=== PATIENT | male | born 1990 | race Caucasian/White ===

== ENCOUNTER 2023-01-13 00:29 | Emergency (ER) | payer OTHER, SELFPAY ==
[2023-01-13 00:34] VITALS: BP 152/106; PULSE 76; RESP 16; TEMP 36.7; O2SAT 100; BMI 31.9
--- NOTE | 2023-01-13 01:04 | PC.NURSE ---
patient c/o migraine since yesterday. states yesterday he believes he had 24hour stomach bug, light fever of 101 and an episode of vomiting. fever and upset stomach improved by morning. denies and flu like symptoms at this time. shortly after his headache started. states he doesn't think he has a hx of migraines but states when he gets a headache its always bad. patient is tearful. states hes been taking extra strenghth excedrin for 24hours without any relief. patient has light sensitivity. and states headache is a strong constant ache with sharp intermittent pains behind left eye.
--- NOTE | 2023-01-13 01:21 | ED_ITS ---
HPI - General Adult General Chief complaint: Headache Stated complaint: HEADACHE, VOMITING, FEVER Time Seen by Provider: 01/13/23 01:16 Source: patient Mode of arrival: walk-in History of Present Illness HPI narrative: patient presents complaining of migraine headache behind his left eye. Similar headaches 3-4 times a year. States headache started yesterday. states he had a fever yesterday also but this has resolved and not returned. S madyson he has an new born at home with a fever. He has some nausea. Emesis once yesterday. No cough or abdominal pain. Onset (ago): day(s) Related Data Allergies Allergy/AdvReac Type Severity Reaction Status Date / Time No Known Drug Allergies Allergy Verified 01/13/23 00:56 Review of Systems ROS Status of ROS 10 or more systems reviewed and unremarkable except as noted in history and below Exam Constitutional Vital Signs, click to edit/add: Last Vital Signs Temp 98.1 F 01/13/23 00:34 Pulse 76 01/13/23 00:34 Resp 16 01/13/23 00:34 BP 152/106 H 01/13/23 00:34 Pulse Ox 100 01/13/23 00:34 O2 Del Method Room Air 01/13/23 00:34 Common normals: oriented x3, healthy appearing and alert General appearance: in distress (appears uncomfortable) HENMT Common normals: normocephalic and head/scalp atraumatic Eye Common normals: PERRL, EOMs intact bilaterally and conjunctivae normal Respiratory Common normals: normal respiratory effort, no retractions, no use of accessory muscles and clear to auscultation bilaterally Cardio Common normals: regular rate, regular rhythm, S1 normal heart sound and S2 normal heart sound GI Common normals: Normal to inspection, nondistended, normoactive bowel sounds present, soft to palpation and non-tender Extremity Common normals: normal to inspection and full ROM Neuro Common normals: oriented x3, CN's II-XII intact bilaterally, moves all extremities, no focal motor deficits and no sensory deficits noted Psych Appearance: grossly normal Course Vital Signs Vital signs: Vital Signs Temperature 98.1 F 01/13/23 00:34 Pulse Rate 76 01/13/23 00:34 Respiratory Rate 16 01/13/23 00:34 Blood Pressure 152/106 H 01/13/23 00:34 Pulse Oximetry 100 01/13/23 00:34 Oxygen Delivery Method Room Air 01/13/23 00:34 Temperature 98.1 F 01/13/23 00:34 Pulse Rate 76 01/13/23 00:34 Respiratory Rate 16 01/13/23 00:34 Blood Pressure 152/106 H 01/13/23 00:34 Pulse Oximetry 100 01/13/23 00:34 Oxygen Delivery Method Room Air 01/13/23 00:34 Medical Decision Making MDM Narrative Medical decision making narrative: patient presents with a headache. typical migraine headache for him. Did have fever yesterday but no recurrence. WBC normal and he is afebrile. Patient medicated for migraine. patient feeling better after treatment and is requesting discharge Lab Data Labs: Lab Results 01/13/23 Range/Units 00:52 WBC 5.6 (4.0-11.0) 10^3/uL RBC 5.17 (4.70-6.10) 10^6/uL Hgb 15.1 (14.0-18.0) g/dL Hct 44.1 (42.0-54.0) % MCV 85.3 (80.0-94.0) fL MCH 29.2 (25.9-34.0) pg MCHC 34.2 (29.9-35.2) g/dL RDW 11.8 (11.0-15.0) % Plt Count 257 (150-450) 10^3/uL MPV 10.1 (9.5-13.5) fL Neut % (Auto) 44.2 (43.0-75.0) % Lymph % (Auto) 42.1 (20.5-60.0) % Nicholas % (Auto) 10.0 (1.7-12.0) % Eos % (Auto) 3.0 (0.9-7.0) % Baso % (Auto) 0.7 (0.2-2.0) % Neut # (Auto) 2.5 (1.4-6.5) 10^3/uL Lymph # (Auto) 2.4 (1.2-3.8) 10^3/uL Nicholas # (Auto) 0.6 (0.3-0.8) 10^3/uL Eos # (Auto) 0.2 (0.0-0.7) 10^3/uL Baso # (Auto) 0.0 (0.0-0.1) 10^3/uL Abs Immat Gran (auto) 0.00 (0.00-0.03) 10^3/uL Imm/Tot Granulo (auto) 0.0 (0.0-0.5) % Sodium 138 (136-145) mmol/L Potassium 3.7 (3.5-5.1) mmol/L Chloride 101 (98-107) mmol/L Carbon Dioxide 25.6 (21.0-32.0) mmol/L Anion Gap 15.1 BUN 10.0 (7.0-18.0) mg/dL Creatinine 0.86 (0.70-1.30) mg/dL Est GFR ( Amer) >60 (>=60) Est GFR (Non-Af Amer) >60 (>=60) BUN/Creatinine Ratio 11.6 Glucose 92 (74-106) mg/dL Lactate 0.9 (0.4-2.0) mmol/L Calcium 9.2 (8.5-10.1) mg/dL Discharge Plan Discharge Chief Complaint: Headache Clinical Impression: Migraine Patient Disposition: Home, Self-Care Condition: Good Mode of Transportation: Private Vehicle Instructions: Migraine Headache (ED) Stand Alone Forms: Portal Instructions Referrals: SILVIA HERNANDEZ [Primary Care Provider] - 1 week Discharge Date/Time: 01/13/23 03:00
[2023-01-13 01:40] LABS: Basophils Percent Auto 0.7 % (0.2-2.0); Eosinophils Absolute Auto 0.2 10^3/uL (0.0-0.7); Hematocrit 44.1 % (42.0-54.0); Hemoglobin 15.1 g/dL (14.0-18.0); Lymphocytes Absolute Auto 2.4 10^3/uL (1.2-3.8); Lymphocytes Percent Auto 42.1 % (20.5-60.0); Mean Corpuscular HGB Conc 34.2 g/dL (29.9-35.2); Mean Corpuscular Hemoglobin 29.2 pg (25.9-34.0); Mean Corpuscular Volume 85.3 fL (80.0-94.0); Mean Platelet Volume 10.1 fL (9.5-13.5); Monocytes Absolute Auto 0.6 10^3/uL (0.3-0.8); Neutrophils Absolute Auto 2.5 10^3/uL (1.4-6.5); Neutrophils Percent Auto 44.2 % (43.0-75.0); Platelet Count 257 10^3/uL (150-450); Red Blood Count 5.17 10^6/uL (4.70-6.10); Red Cell Distribution Width 11.8 % (11.0-15.0); White Blood Count 5.6 10^3/uL (4.0-11.0)
[2023-01-13] MEDS: METHYLPREDNISOLONE SOD SUCC PF 125 MG/2 ML VIAL IVP (01:41)
[2023-01-13] MEDS: METOCLOPRAMIDE HCL 10 MG/2 ML VIAL IVP (01:41)
[2023-01-13] MEDS: MAGNESIUM SULFATE IN WATER 2 GM/50 ML PREMIX IV (01:42)
[2023-01-13 01:46] LABS: Anion Gap 15.1; BUN Creatinine Ratio 11.6; Calcium 9.2 mg/dL (8.5-10.1); Carbon Dioxide 25.6 mmol/L (21.0-32.0); Chloride 101 mmol/L (98-107); Estimated GFR (African America >60 (>=60); Estimated GFR (Non-African Ame >60 (>=60); Glucose 92 mg/dL (74-106); Potassium 3.7 mmol/L (3.5-5.1); Sodium 138 mmol/L (136-145)
[2023-01-13 01:55] LABS: Lactate/Lactic Acid 0.9 mmol/L (0.4-2.0)
== END 2023-01-13 03:00 | disposition home or self-care (01) ==
LOC: ER 01:09
PROVIDERS: Emergency Provider Internal Medicine; PCP Family Medicine
DX: G43.909 Migraine, unspecified, not intractable, without status migrainosus (principal)
CPT/HCPCS: 36415; 80048; 83605; 85025; 96365; 96375; 99284; J2930

== ENCOUNTER 2024-07-11 19:42 | Emergency (ER) | payer OTHER, SELFPAY ==
--- OUTSIDE RECORDS SUMMARY | 2024-07-11 19:48 | XMS_ITS | CCD ---
Author Organization [facility] Care Team Providers Care Flatbed Owner Operator Name Role Phone RICHARD HERNANDEZ Referring Unavailable RICHARD HERNANDEZ Primary Care Unavailable Richard Hernandez Primary Care Provider Reena Galloway Unavailable MARK ., DR LOBO Parikh Primary Care Unavailable BRENT HILTON Admitting Unavailable BRENT HILTON Attending Unavailable BRENT HILTON Consulting Unavailable MARK ., DR LOBO Parikh Admitting Unavailable FLORES ., DR LOBO Parikh Attending Unavailable FLORES ., DR LOBO Parikh Primary Care Unavailable MARK ., DR LOBO Parikh Consulting Unavailable MD Richard Hernandez Primary Care Provider DO [facility] [phone] Rodger [place] Attending Unavailable Horace Lam Unavailable Glenn Islas Admitting Unavailable Glenn Islas Attending Unavailable Richard Hernandez Primary Care Unavailable Richard Hernandez Primary Care Unavailable [facility] Admitting Unavailable [facility] Attending Unavailable Richard Hernandez MD Primary Care Provider [phone] RICHARD HERNANDEZ Attending Unavailable Medications Current Medications Medication Drug Class(es) Dates Sig (Normalized) Sig (Original) cephalexin 500 mg oral capsule (2 sources) Cephalosporin Antibacterial Start: 09-07-2022 take 500 mg by mouth twice daily Cephalexin Active 500 MG PO Twice daily 10 September 07, 2022 12:00am DULoxetine 20 mg delayed release oral capsule (9 sources) Serotonin and Norepinephrine Reuptake Inhibitor Start: 10-26-2022 End: 04-24-2023 take 1 capsule by mouth in the morning DULoxetine (Cymbalta) [address] capsule Indications: Anxiety Take 1 capsule (20 mg) by mouth in the morning. Do not crush or chew.. 90 capsule 1 10/26/2022 04/24/2023 Active Start: 09-06-2022 take 1 capsule by mo [facility] once daily Duloxetine (Cymbalta) 20 mg capsule,delayed release(DR/EC) Active 20 MG PO Daily September 06, 2022 12:00am Cymbalta 25mg Ac tive Fiber (1 source) Fiber Active hydrOXYzine hydrochloride 25 mg oral tablet (5 sources) Antihistamine Start: 09-06-2022 take 25 mg by mouth once daily Hydroxyzine Hcl Active 25 MG PO Daily September 06, 2022 12:00am Start: 08-31-2022 take 1 tablet by [facility] four times daily as needed for anxiety hydrOXYzine HCl (Atarax) 25 MG tablet Indications: Anxiety Take 1 tablet (25 mg) by mouth 4 (four) times a day as needed for anxiety. 40 tablet 0 08/31/2022 Active 12 hr orphenadrine citrate 100 mg extended release oral tablet (1 source) Muscle Relaxant Start: 05-13-2022 take 1 tablet by mouth twice daily as needed, then take 1 tablet by mouth every twelve hours as needed orphenadrine (Norflex) 100 MG 12 hr tablet Take 100 mg by mouth 2 (two) times a day as needed (migraines). 0 05/13/2022 Active oxyCODONE hydrochloride 5 mg oral tablet (2 sources) Opioid Agonist Start: 09-07-2022 take 5 mg by mouth every eight hours Oxycodone Active 5 MG PO Q8H 12 September 07, 2022 Start: 09-07-2022 take 5 mg by mouth e very eight hours Oxycodone Active 5 MG PO Q8H 12 September 07, 2022 polyethylene glycol 3350 38168 mg powder for oral solution (3 sources) Osmotic Laxative take 17 g by mouth in the morning, then take 17 g by mouth in the evening, then take 17 g by mouth at bedtime polyethylene glycol, PEG, 3350 (Glycolax) 17 GM/SCOOP powder Take 17 g by mouth in the morning and 17 g in the evening and 17 g before bedtime. 0 Active MiraLax 17 GM/SC OOP 1 scoop mixed with 8 ounces of fluid Orally twice a day Active polyethylene glycol 3350 889911 mg / potassium chloride 2970 mg / sodium bicarbonate 6740 mg / sodium chloride 5860 mg / sodium sulfate 81193 mg powder for oral solution (4 sources) Osmotic Laxative Start: 10-26-2022 PEG-3350/Electrolytes 236 GM as directed Orally once a day for 1 Oct, Active Probiotic (1 source) Probiotic Active Senna Leaves (1 source) Senna Active sulfamethoxazole 800 mg / trimethoprim 160 mg oral tablet (2 sources) Dihydrofolate Reductase Inhibitor Antibacterial, Sulfonamide Antimicrobial Start: 09-06-2022 take 1 tablet by mouth twice daily Sulfamethoxazole-Trimeth oprim Active 800 TAB PO Twice daily September 06, 2022 12:00am tamsulosin hydrochloride 0.4 mg oral capsule (6 sources) alpha-Adrenergic Susan take 1 capsule by mouth once daily at bedtime tamsulosin (Flomax) 0.4 MG 24 hr capsule TAKE 1 CAPSULE BY MOUTH EVERY DAY IN THE MORNING AND AT BEDTIME 0 Active Flomax bid Activ e Trulance 3 MG (1 source) Start: 01-24-2023 take 1 tablet by armando th once daily Trulance 3 MG 1 tablet Orally Once a day for 30 days Jan, Active Completed/Discontinued Medications Medication Drug Class(es) Dates Sig (Normalized) Sig (Original) Ketorolac (6 sources) Nonsteroidal Anti-inflammatory Drug, Cyclooxygenase Inhibitor Start: 11-09-2015 Toradol per 15 mg Nov, 60 mg polymyxin b 65070 unt/ml / trimethoprim 1 mg/ml ophthalmic solution (5 sources) Dihydrofolate Reductase Inhibitor Antibacterial, Polymyxin-class Antibacterial Start: 03-13-2021 take 1 drop(s) into the eye(s) four times daily Polymyxin B-Trimethoprim 04013-3.1 UNIT/ML 1 drop into affected eye Ophthalmic Four times a day for 5 day(s) Mar, Not-Taking Problems Active Problems Problem Classification Problem Date Documented Da te Episodic/Chronic Anxiety disorders (6 sources) Generalized anxiety disorder; Translations: [Generalized anxiety disorder] Onset: 02-16-2009 Resolved: 10-26-2022 10-26-2022 Chronic Fever of unknown origin (4 sources) Fever, unspecified; Translations: [FEVER UNSPECIFIED] Onset: 03-01-2022 Episodic Headache; including migraine (6 sources) Tension-type headache; Translations: [Headache, tension] Onset: 10-07-2012 Chronic Malaise and fatigue (1 source) Fatigue; Translations: [Chronic fatigue, unspecified] Onset: 08-30-2022 08-30-2022 Chronic Nausea and vomiting (1 source) Nausea; Translations: [NAUSEA] Onset: 03-03-2022 Episodic Other aftercare (1 source) Other extermination supervisor (current) drug therapy; Translations: [OTH [facility] CURRENT DRUG THERAPY] Onset: 05-16-2022 Episodic Other circulatory disease (1 source) Other specified symptoms and signs involving the circulatory and respiratory systems; Translations: [OTH SPEC SX SIGNS INVLV CIRC RS] Onset: 03-03-2022 Episodic Other ear and sense organ disorders (2 sources) Middle ear conductive hearing loss; Translations: [Conductive hearing loss, middle ear] Onset: 03-01-2012 Chronic Other gastrointestinal disorders (2 sources) Irritable bowel syndrome characterized by constipation; Translations: [Irritable bowel syndrome with constipation] Chronic Other gastrointestinal disorders (2 sources) Irritable bowel syndrome with constipation Chronic Other gastrointestinal disorders (1 source) Constipation, unspecified Episodic Other gastrointestinal disorders (2 sources) Change in bowel habit; Translations: [Change in bowel habit] Onset: 01-08-2023 Episodic Residual codes; unclassified (1 source) Pain, unspecified; Translations: [PAIN UNSPECIFIED] Onset: 03-03-2022 Episodic Past or Other Problems Problem Classification Problem Date Documented Da te Episodic/Chronic Allergic reactions (1 source) Allergy to food; Translations: [Allergy to other foods] Onset: 09-21-2020 08-30-2022 Episodic Genitourinary symptoms and ill-defined conditions (5 sources) Stewart hematuria; Translations: [Gross hematuria] Onset: 02-22-2009 09-07-2022 Episodic Immunizations and screening for infectious disease (1 source) Contact with and (suspected) exposure to other viral communicable diseases Onset: 03-13-2021 Resolved: 03-13-2021 Episodic Inflammation; infection of eye (except that caused by tuberculosis or sexually transmitteddisease) (1 source) Unspecified acute conjunctivitis, right eye Onset: 03-13-2021 Resolved: 03-13-2021 Episodic Other ear and sense organ disorders (2 sources) Impacted cerumen; Translations: [Excess wax in ear] Onset: 03-02-2012 Episodic Other gastrointestinal disorders (7 sources) Constipation; Translations: [Constipation, unspecified] Onset: 09-23-2020 Resolved: 04-11-2023 04-11-2023 Episodic Other nutritional; endocrine; and metabolic disorders (1 source) Obesity; Translations: [Obesity, unspecified] Onset: 10-02-2018 Resolved: 04-11-2023 04-11-2023 Chronic Other nutritional; endocrine; and metabolic disorders (1 source) Body mass index 25-29 - overweight; Translations: [Overweight] Onset: 08-30-2022 08-30-2022 Episodic Other nutritional; endocrine; and metabolic disorders (1 source) Overweight; Translations: [Overweight] Onset: 09-23-2020 Resolved: 04-11-2023 04-11-2023 Episodic Other skin disorders (2 sources) Disorder of skin; 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, other specified] Onset: 10-12-2009 Episodic Screening and history of mental health and substance abuse codes (2 sources) Personal history of nicotine dependence; Translations: [Ex-smoker] Onset: 09-23-2020 08-30-2022 Episodic Spondylosis; intervertebral disc disorders; other back problems (2 sources) Neck pain; Translations: [Neck Pain/Cervicalgia] Onset: 04-04-2011 Episodic Superficial injury; contusion (2 sources) Superficial injury of abdominal wall without infection; Translations: [Superficial injury of abdominal wall without infection] Onset: 10-12-2009 Episodic Results Test Name Value Interpretation Reference Range Facility Alanine aminotransferase [En zymatic activity/volume] in Serum or PlasmaOrdered By: Mt Reyes on 09-07-2022 ALT [Catalytic activity/Vol] 21 U/L 7-52 [facility] Albumin [Mass/volume] in Ser um or Plasma by Bromocresol green (BCG) dye binding methoOrdered By: Mt Reyes on 09-07-2022 Albumin BCG dye [Mass/Vol] 4.5 g/dL 3.5-5.7 [facility] Alkaline phosphatase [Enzyma tic activity/volume] in Serum or PlasmaOrdered By: Mt Reyes on 09-07-2022 ALP [Catalytic activity/Vol] 59 U/L 34-104 [facility] Aspartate aminotransferase [ Enzymatic activity/volume] in Serum or PlasmaOrdered By: Mt Reyes on 09-07-2022 AST [Catalytic activity/Vol] 18 U/L 13-39 [facility] Automated erythrocytes count in urine sediment (number/area)Ordered By: Mt Reyes on 09-07-2022 RBC Auto (Urine sed) [#/Area] 10-19 [HPF] 0-4 [facility] Automated leukocytes count i n urine sediment (number/area)Ordered By: Mt Reyes on 09-07-2022 WBC Auto (Urine sed) [#/Area] None seen [HPF] 0-4 [facility] Basic Metabolic Panelon Anion gap [Moles/Vol] 9.8 mmol/L Normal 6.0-15.0 [facility] Comment on above: Performed By: #### C BC, HEPATIC, LIPASE, BMP #### [facility] [address] [place] [address] [place] Calcium [Mass/Vol] 8.7 mg/dL Normal 8.6-10.3 [facility] Comment on above: Performed By: #### C BC, HEPATIC, LIPASE, BMP #### [facility] [address] [place] [id number] [place] Chloride [Moles/Vol] 106 mmol/L Normal 98-107 [facility] Comment on above: Performed By: #### C BC, HEPATIC, LIPASE, BMP #### [facility] [address] [place] [id number] [place] CO2 [Moles/Vol] 24.8 mmol/L Normal 21.0-31.0 [facility] Comment on above: Performed By: #### C BC, HEPATIC, LIPASE, BMP #### [facility] [address] [place] [id number] [place] Creatinine [Mass/Vol] 0.90 mg/dL Normal 0.70-1.30 [facility] Comment on above: Performed By: #### C BC, HEPATIC, LIPASE, BMP #### [facility] [address] [place] [phone] [place] Creatinine Clr Calc Pharmacy 141.04 Normal [facility] Comment on above: Performed By: #### C BC, HEPATIC, LIPASE, BMP #### [facility] [address] [place] [address] [place] GFR/1.73 sq M.predicted MDRD (S/P/Bld) [Vol rate/Area] mL/min/{1.73_m2} Normal [facility] Comment on above: Performed By: #### C BC, HEPATIC, LIPASE, BMP #### [facility] [address] Glucose [Mass/Vol] 74 mg/dL Normal 70-100 [facility] Comment on above: Result Comment: [facility] Glucose Reference Range is dependent on time and content of last meal. Glucose of more than 200 mg/dL in a nonstressed, ambulatory subject supports the diagnosis of Diabetes Mellitus. ADA recommended reference range Performed By: #### C BC, HEPATIC, LIPASE, BMP #### [facility] [address] Potassium [Moles/Vol] 3.6 mmol/L Normal 3.5-5.1 [facility] Comment on above: Performed By: #### C BC, HEPATIC, LIPASE, BMP #### [facility] [address] [place] [address] [place] Sodium [Moles/Vol] 137 mmol/L Normal 136-145 [facility] Comment on above: Performed By: #### C BC, HEPATIC, LIPASE, BMP #### [facility] [address] [place] [address] [place] Urea nitrogen [Mass/Vol] 14 mg/dL Normal 7-25 [facility] Comment on above: Performed By: #### C BC, HEPATIC, LIPASE, BMP #### [facility] [address] [place] [address] [place] Basophils Auto (Bld) [#/Vol] Ordered By: Mt Reyes on 09-07-2022 Basophils (Bld) [#/Vol] 0.1 10*3/uL 0.0-0.2 [facility] Basophils/100 WBC Auto (Bld) Ordered By: Mt Reyes on 09-07-2022 Basophils/100 WBC (Bld) 1.2 % . [facility] Bilirubin Test strip Ql (U)O rdered By: Mt Reyes on 09-07-2022 Bilirubin Ql (U) Negative Negative [facility] Bilirubin.direct [Mass/volum e] in Serum or PlasmaOrdered By: Mt Reyes on 09-07-2022 Bilirubin.direct [Mass/Vol] 0.10 mg/dL 0.03-0.18 [facility] Bilirubin.total [Mass/volume ] in Serum or PlasmaOrdered By: Mt Reyes on 09-07-2022 Bilirubin [Mass/Vol] 0.4 mg/dL 0.3-1.0 [facility] CT abdomen pelvis wo conon 0 09-07-2022 CT abdomen pelvis wo con [facility] [place] [address] CT Scan Report Signed Patient: Kim Sawant MR#: [id number] : 1990 Acct:[id number] Age/Sex: 32 / M ADM Date: 09/06/22 Loc: ER Room: Type: [facility] ER Attending Dr: Copies to: Mt Reyes DO Ordering Provider: Mt Reyes DO Date of Service: 09/07/22 CT/CT abdomen pelvis wo con: f CT Abdomen and Pelvis withoutcontrast TECHNIQUE: Axial imaging with 2-D reconstruction. . The CT exam was performed using one or more the following dose reduction techniques: Automated exposure control, adjustment of the MA and/or Kv according to patient size, or use of the iterative reconstruction technique. COMPARISON: None History: Left flank pain for 5 days LIMITATIONS: None LOWER THORAX Unremarkable LIVER: Unremarkable GALLBLADDER: No gallbladder abnormality identified. BILE DUCTS: No dilatation SPLEEN: Unremarkable PANCREAS: Unremarkable ADRENAL GLANDS: Unremarkable KIDNEYS:Unremarkable AORTA: No abdominal aortic aneurysm identified. RETROPERITONEUM: No significant retroperitoneal abnormalities identified. MESENTERY:Unremarkable SMALL BOWEL: The small bowel loops are nondistended. APPENDIX: The appendix is normal. COLON: Dense colonic fecal retention without obstruction. URINARY BLADDER: Decompressed by catheter. REPRODUCTIVE SYSTEM: Reproductive structures are unremarkable. PNEUMOPERITONEUM: None PERITONEAL FLUID:None BONY STRUCTURES: Degenerative change. ABDOMINAL WALL: Unremarkable CT/CT abdomen pelvis wo con IMPRESSION: No nephrolithiasis or obstructive uropathy. Normal appendix. Dense retained stool. Impression dictated by: John Toledo M.D.09/07/2022 8:23 AM Dictation Location: [place] [address] Transcribed By: [facility] 09/07/22822 Dictated By: John Toledo DO 09/07/22821 Signed By: 09/07/22822 Normal [facility] Calcium [Mass/volume] in Ser um or PlasmaOrdered By: Mt Reyes on 09-07-2022 Calcium [Mass/Vol] 8.7 mg/dL 8.6-10.3 [facility] Carbon dioxide, total [Moles /volume] in Serum or PlasmaOrdered By: Mt Reyes on 09-07-2022 CO2 [Moles/Vol] 24.8 mmol/L 21.0-31.0 [facility] Chloride [Moles/volume] in S basil or PlasmaOrdered By: Mt Reyes on 09-07-2022 Chloride [Moles/Vol] 106 mmol/L 98-107 [facility] Color Auto (U)Ordered By: Damien Reyes on 09-07-2022 Color (U) Yellow Yellow [facility] Complete Blood Count Auto Di ffon 09-07-2022 Basophils (Bld) [#/Vol] 0.1 10*3/uL Normal 0.0-0.2 [facility] Comment on above: Result Comment: PERF ORMED BY: [place] [address] PATHOLOGIST CHIEF ENGINEER VITALY CULLEN M.D. Performed By: #### C BC, HEPATIC, LIPASE, BMP #### [facility] [address] Basophils/100 WBC (Bld) 1.2 % Normal . [facility] Comment on above: Performed By: #### C BC, HEPATIC, LIPASE, BMP #### [facility] [address] Eosinophils (Bld) [#/Vol] 0.2 10*3/uL Normal 0.0-0.45 [facility] Comment on above: Performed By: #### C BC, HEPATIC, LIPASE, BMP #### [facility] [address] Eosinophils/100 WBC (Bld) 3.2 % Normal . [facility] Comment on above: Performed By: #### C BC, HEPATIC, LIPASE, BMP #### [facility] [address] Erythrocyte distribution width (RBC) [Ratio] 12.8 % Normal 12.0-14.8 [facility] Comment on above: Performed By: #### C BC, HEPATIC, LIPASE, BMP #### [address] Hematocrit (Bld) [Volume fraction] 39.5 % Normal 38.8-50.0 [facility] Comment on above: Performed By: #### C BC, HEPATIC, LIPASE, BMP #### [address] Hemoglobin (Bld) [Mass/Vol] 13.6 g/dL Normal 13.0-17.0 [facility] Comment on above: Performed By: #### C BC, HEPATIC, LIPASE, BMP #### [address] Lymphocytes (Bld) [#/Vol] 2.0 10*3/uL Normal 1.00-4.8 [facility] Comment on above: Performed By: #### C BC, HEPATIC, LIPASE, BMP #### [address] Lymphocytes/100 WBC (Bld) 29.3 % Normal . [facility] Comment on above: Performed By: #### C BC, HEPATIC, LIPASE, BMP #### [address] MCH (RBC) [Entitic mass] 29.5 pg Normal 27.5-35.2 [facility] Comment on above: Performed By: #### C BC, HEPATIC, LIPASE, BMP #### [address] MCV (RBC) [Entitic vol] 85.7 fL Normal 83.5-101 [facility] Comment on above: Performed By: #### C BC, HEPATIC, LIPASE, BMP #### [facility] [address] [place] [address] Mean Corpuscular HGB Conc 34.4 g/dL Normal 32.5-35.6 [facility] Comment on above: Performed By: #### C BC, HEPATIC, LIPASE, BMP #### [facility] [address] [place] [address] [place] Monocytes (Bld) [#/Vol] 0.8 10*3/uL Normal 0.0-0.8 [facility] Comment on above: Performed By: #### C BC, HEPATIC, LIPASE, BMP #### [address] Monocytes/100 WBC (Bld) 17.87 % Normal 0.00-20.00 [facility] Comment on above: Performed By: #### C BC, HEPATIC, LIPASE, BMP #### [address] Monocytes/100 WBC (Bld) 11.6 % Normal . [facility] Comment on above: Performed By: #### C BC, HEPATIC, LIPASE, BMP #### [address] Neutrophils (Bld) [#/Vol] 3.7 10*3/uL Normal 1.8-7.7 [facility] Comment on above: Performed By: #### C BC, HEPATIC, LIPASE, BMP #### [place] [address] [place] Neutrophils/100 WBC (Bld) 54.7 % Normal . [facility] Comment on above: Performed By: #### C BC, HEPATIC, LIPASE, BMP #### [place] [address] [place] NRBC% 0.0 /100{WBC} Normal 0-0.5 [facility] Comment on above: Performed By: #### C BC, HEPATIC, LIPASE, BMP #### [address] Platelet mean volume (Bld) [Entitic vol] 7.8 fL Normal 6.6-10.1 [facility] Comment on above: Performed By: #### C BC, HEPATIC, LIPASE, BMP #### [facility] [address] Platelets (Bld) [#/Vol] 256 10*3/uL Normal 150-450 [facility] Comment on above: Performed By: #### C BC, HEPATIC, LIPASE, BMP #### [facility] [address] RBC (Bld) [#/Vol] 4.61 10*6/uL Normal 3.90-5.60 [facility] Comment on above: Performed By: #### C BC, HEPATIC, LIPASE, BMP #### [facility] [address] WBC (Bld) [#/Vol] 6.7 10*3/uL Normal 4.1-10.5 [facility] Comment on above: Performed By: #### C BC, HEPATIC, LIPASE, BMP #### [facility] [address] Creatinine [Mass/volume] in Serum or PlasmaOrdered By: Mt Reyes on 09-07-2022 Creatinine [Mass/Vol] 0.90 mg/dL 0.70-1.30 [facility] Dipstick and Microscopicon 0 09-07-2022 Appearance (U) Clear Normal Clear [facility] Comment on above: Order Comment: Name Collection Type:: Joyce Catheter Performed By: #### A DDONUAPLUS #### [facility] [address] Bacteria,Urine None Seen Normal None Seen [facility] Comment on above: Order Comment: Name Collection Type:: Joyce Catheter Performed By: #### A DDONUAPLUS #### [facility] [address] Bilirubin,Urine Negative Normal Negative [facility] Comment on above: Order Comment: Name Collection Type:: Joyce Catheter Performed By: #### A DDONUAPLUS #### [facility] [address] [place] [address] [place] Color (U) Yellow Normal Yellow [facility] Comment on above: Order Comment: Name Collection Type:: Joyce Catheter Performed By: #### A DDONUAPLUS #### [facility] [address] [place] [id number] [place] Glucose Ql (U) Normal Normal Normal [facility] Comment on above: Order Comment: Name Collection Type:: Joyce Catheter Performed By: #### A DDONUAPLUS #### [place] [address] [place] Hyaline Casts,Urine None Seen Normal 0-8 [facility] Comment on above: Order Comment: Name Collection Type:: Joyce Catheter Result Comment: PERF ORMED BY: [place] [address] PATHOLOGIST CHIEF ENGINEER VITALY CULLEN M.D. Performed By: #### A DDONUAPLUS #### [place] [address] [place] Ketones Ql (U) Trace High Negative [facility] Comment on above: Order Comment: Name Collection Type:: Joyce Catheter Performed By: #### A DDONUAPLUS #### [address] Leukocyte esterase Test strip Ql (U) Negative Normal Negative [facility] Comment on above: Order Comment: Name Collection Type:: Joyce Catheter Performed By: #### A DDONUAPLUS #### [facility] [address] [place] [address] [place] Nitrite,Urine Negative Normal Negative [facility] Comment on above: Order Comment: Name Collection Type:: Joyce Catheter Performed By: #### A DDONUAPLUS #### [place] [address] [place] Occult Blood,Urine 1+ High Negative [facility] Comment on above: Order Comment: Name Collection Type:: Joyce Catheter Result Comment: PERF ORMED BY: [place] [address] PATHOLOGIST CHIEF ENGINEER VITALY CULLEN M.D. Performed By: #### A DDONUAPLUS #### [address] pH (U) 6.0 [pH] Normal 5.0-9.0 [facility] Comment on above: Order Comment: Name Collection Type:: Joyce Catheter Performed By: #### A DDONUAPLUS #### [address] Protein,Urine Negative Normal Negative [facility] Comment on above: Order Comment: Name Collection Type:: Joyce Catheter Performed By: #### A DDONUAPLUS #### [address] RBC,Urine 10-19 High 0-4 [facility] Comment on above: Order Comment: Name Collection Type:: Joyce Catheter Performed By: #### A DDONUAPLUS #### [address] Specificy [place],Urine 1.016 Normal 1.001-1.030 [facility] Comment on above: Order Comment: Name Collection Type:: Joyce Catheter Performed By: #### A DDONUAPLUS #### [address] Squamous Epithelial Cell,Urine None Seen Normal 0-2 [facility] Comment on above: Order Comment: Name Collection Type:: Joyce Catheter Performed By: #### A DDONUAPLUS #### [address] Urobilinogen,Urine Normal Normal Normal [facility] Comment on above: Order Comment: Name Collection Type:: Joyce Catheter Performed By: #### A DDONUAPLUS #### [address] WBC,Urine None Seen Normal 0-4 [facility] Comment on above: Order Comment: Name Collection Type:: Joyce Catheter Performed By: #### A DDONUAPLUS #### [address] Eosinophils Auto (Bld) [#/Vo l]Ordered By: Mt Reyes on 09-07-2022 Eosinophils (Bld) [#/Vol] 0.2 10*3/uL 0.0-0.45 [facility] Eosinophils/100 WBC Auto (Bl d)Ordered By: Mt Reyes on 09-07-2022 Eosinophils/100 WBC (Bld) 3.2 % . [facility] Erythrocyte distribution wid th Auto (RBC) [Ratio]Ordered By: Mt Reyes on 09-07-2022 Erythrocyte distribution width (RBC) [Ratio] 12.8 % 12.0-14.8 [facility] Globulin Calc (S) [Mass/Vol] Ordered By: Mt Reyes on 09-07-2022 Globulin (S) [Mass/Vol] 2.0 g/dL [facility] Glucose [Mass/volume] in Ser um or PlasmaOrdered By: Mt Reyes on 09-07-2022 Glucose [Mass/Vol] 74 mg/dL 70-100 [facility] Comment on above: ADA recommended refe rence rangeRandom Glucose Reference Range is dependent on time and content of last meal. Glucose of more than 200 mg/dL in a nonstressed, ambulatory subject supports the diagnosis of Diabetes Mellitus. Hematocrit Auto (Bld) [Volum e fraction]Ordered By: Mt Reyes on 09-07-2022 Hematocrit (Bld) [Volume fraction] 39.5 % 38.8-50.0 [facility] Hemoglobin [Mass/volume] in BloodOrdered By: Mt Reyes on 09-07-2022 Hemoglobin (Bld) [Mass/Vol] 13.6 g/dL 13.0-17.0 [facility] Hepatic Panelon 09-07-2022 Albumin [Mass/Vol] 4.5 g/dL Normal 3.5-5.7 [facility] Comment on above: Performed By: #### C BC, HEPATIC, LIPASE, BMP #### [facility] [address] [id number] [facility] Albumin/Globulin [Mass ratio] 2.3 {ratio} Normal [facility] Comment on above: Performed By: #### C BC, HEPATIC, LIPASE, BMP #### [facility] [address] ALP [Catalytic activity/Vol] 59 U/L Normal 34-104 [facility] Comment on above: Performed By: #### C BC, HEPATIC, LIPASE, BMP #### [facility] [address] ALT [Catalytic activity/Vol] 21 U/L Normal 7-52 [facility] Comment on above: Performed By: #### C BC, HEPATIC, LIPASE, BMP #### [facility] [address] AST [Catalytic activity/Vol] 18 U/L Normal 13-39 [facility] Comment on above: Performed By: #### C BC, HEPATIC, LIPASE, BMP #### [facility] [address] Bilirubin [Mass/Vol] 0.4 mg/dL Normal 0.3-1.0 [facility] Comment on above: Performed By: #### C BC, HEPATIC, LIPASE, BMP #### [facility] [address] Bilirubin,Indirect 0.3 mg/dL Normal [facility] Comment on above: Performed By: #### C BC, HEPATIC, LIPASE, BMP #### [facility] [address] Bilirubin.indirect [Mass/Vol] 0.10 mg/dL Normal 0.03-0.18 [facility] Comment on above: Performed By: #### C BC, HEPATIC, LIPASE, BMP #### [facility] [address] [place] [address] [place] Globulin (S) [Mass/Vol] 2.0 g/dL Normal [facility] Comment on above: Performed By: #### C BC, HEPATIC, LIPASE, BMP #### [facility] [address] Protein [Mass/Vol] 6.5 g/dL Normal 6.4-8.9 [facility] Comment on above: Performed By: #### C BC, HEPATIC, LIPASE, BMP #### [facility] [address] [id number] [facility] Ketones Auto test strip (U) [Mass/Vol]Ordered By: Mt Reyes on 09-07-2022 Ketones (U) [Mass/Vol] Trace Negative [facility] - UrinalysisOrder ed By: Mt Reyes on 09-07-2022 Hyaline casts LM Ql (Urine sed) None seen [LPF] 0-8 [facility] Leukocytes [#/volume] correc nora for nucleated erythrocytes in Blood by Automated counOrdered By: Mt Reyes on 09-07-2022 WBC corrected for nucl RBC Auto (Bld) [#/Vol] 6.7 10*3/uL 4.1-10.5 [facility] Lipaseon 09-07-2022 Lipase [Catalytic activity/Vol] 36.0 U/L Normal 11.0-82.0 [facility] Comment on above: Result Comment: PERF ORMED BY: [facility] [address] [place] [address] PATHOLOGIST CHIEF ENGINEER VITALY CULLEN M.D. Performed By: #### C BC, HEPATIC, LIPASE, BMP #### [facility] [address] Lipase [Enzymatic activity/v olume] in Serum or PlasmaOrdered By: Mt Reyes on 09-07-2022 Lipase [Catalytic activity/Vol] 36.0 U/L 11.0-82.0 [facility] Lymphocytes Auto (Bld) [#/Vo l]Ordered By: Mt Reyes on 09-07-2022 Lymphocytes (Bld) [#/Vol] 2.0 10*3/uL 1.00-4.8 [facility] Lymphocytes/100 WBC Auto (Bl d)Ordered By: Mt Reyes on 09-07-2022 Lymphocytes/100 WBC (Bld) 29.3 % . [facility] MCH Auto (RBC) [Entitic mass ]Ordered By: Mt Reyes on 09-07-2022 MCH (RBC) [Entitic mass] 29.5 pg 27.5-35.2 [facility] MCHC Auto (RBC) [Mass/Vol]Or dered By: Mt Reyes on 09-07-2022 MCHC (RBC) [Mass/Vol] 34.4 g/dL 32.5-35.6 [facility] MCV Auto (RBC) [Entitic vol] Ordered By: Mt Reyes on 09-07-2022 MCV (RBC) [Entitic vol] 85.7 fL 83.5-101 [facility] Monocyte distribution width [Entitic volume] in Blood by AutomatedOrdered By: Mt Reyes on 09-07-2022 Monocyte distribution width Auto (Bld) [Entitic vol] 17.87 % 0.00-20.00 [facility] Monocytes Auto (Bld) [#/Vol] Ordered By: Mt Reyes on 09-07-2022 Monocytes (Bld) [#/Vol] 0.8 10*3/uL 0.0-0.8 [facility] Monocytes/100 WBC Auto (Bld) Ordered By: Mt Reyes on 09-07-2022 Monocytes/100 WBC (Bld) 11.6 % . [facility] Neutrophils Auto (Bld) [#/Vo l]Ordered By: Mt Reyes on 09-07-2022 Neutrophils (Bld) [#/Vol] 3.7 10*3/uL 1.8-7.7 [facility] Neutrophils/100 WBC Auto (Bl d)Ordered By: Mt Reyes on 09-07-2022 Neutrophils/100 WBC (Bld) 54.7 % . [facility] Nitrite Test strip Ql (U)Ord ered By: Mt Reyes on 09-07-2022 Nitrite Ql (U) Negative Negative [facility] No Panel InformationOrdered By: Mt Reyes on 09-07-2022 Estimated GFR (CKD-EPI) > 60.0 mL/Min [facility] Creatinine Clearance (Chem 141.04 [facility] Nucleated erythrocytes [Pres ence] in Blood by Automated countOrdered By: Mt Reyes on 09-07-2022 Nucleated RBC Auto Ql (Bld) 0.0 /100{WBC} 0-0.5 [facility] Platelet mean volume Auto (B ld) [Entitic vol]Ordered By: Mt Reyes on 09-07-2022 Platelet mean volume (Bld) [Entitic vol] 7.8 fL 6.6-10.1 [facility] Platelets Auto (Bld) [#/Vol] Ordered By: Mt Reyes on 09-07-2022 Platelets (Bld) [#/Vol] 256 10*3/uL 150-450 [facility] Potassium [Moles/volume] in Serum or PlasmaOrdered By: Mt Reyes on 09-07-2022 Potassium [Moles/Vol] 3.6 mmol/L 3.5-5.1 [facility] Protein Auto test strip (U) [Mass/Vol]Ordered By: Mt Reyes on 09-07-2022 Protein (U) [Mass/Vol] Negative Negative [facility] Protein [Mass/volume] in Ser um or PlasmaOrdered By: Mt Reyes on 09-07-2022 Protein [Mass/Vol] 6.5 g/dL 6.4-8.9 [facility] RBC Auto (Bld) [#/Vol]Ordere d By: Mt Reyes on 09-07-2022 RBC (Bld) [#/Vol] 4.61 10*6/uL 3.90-5.60 [facility] Serum or plasma albumin/glob ulin mass ratioOrdered By: Mt Reyes on 09-07-2022 Albumin/Globulin [Mass ratio] 2.3 {ratio} [facility] Serum or plasma anion gap de terminationOrdered By: Mt Reyes on 09-07-2022 Anion gap [Moles/Vol] 9.8 mmol/L 6.0-15.0 [facility] Serum or plasma non-glucuron idated bilirubin measurement (mass/volume)Ordered By: Mt Reyes on 09-07-2022 Bilirubin.indirect [Mass/Vol] 0.3 mg/dL [facility] Sodium [Moles/volume] in Ser um or PlasmaOrdered By: Mt Reyes on 09-07-2022 Sodium [Moles/Vol] 137 mmol/L 136-145 [facility] Specific gravity Auto test s trip (U) [Rel density]Ordered By: Mt Reyes on 09-07-2022 Specific gravity (U) [Rel density] 1.016 1.001-1.030 [facility] Squamous epithelial cells de tection in urine sediment by light microscopyOrdered By: Mt Reyes on 09-07-2022 Epithelial cells.squamous LM Ql (Urine sed) None seen [HPF] 0-2 [facility] US scrotumon 09-07-2022 US scrotum [facility] [address] [place] [address] [place] [address] Ultrasound Report Signed Patient: Kim Sawant MR#: [id number] : 1990 Acct:[id number] Age/Sex: 32 / M ADM Date: 09/06/22 Loc: ER Room: Type: [facility] ER Attending Dr: Ordering Provider: Freddy Cai DO Date of Service: 09/07/22 US/US scrotum: swelling Copies to: DO Freddy Flores DO Scrotal ultrasound HISTORY: Right flank pain. COMPARISON: None RIGHT testicle measures 4.5 x 2.3 x 3.6 cm. LEFT testicle measures 3.9 x 2.8 x 3.1 cm. No testicular mass or microcalcifications identified. Normal color flow of both testicles identified. RIGHT epididymal head measures 0.9 x 1.2 x 0.5 cm. LEFT epididymal head measures 0.6 x 0.9 x 1.2 cm. . No hydroceles identified. No scrotal wall abnormality identified. US/US scrotum IMPRESSION: Suspected mild right epididymitis. Unremarkable testicles. Impression dictated by: John Toledo M.D.09/07/2022 10:20 AM Dictation Location: [place] [address] Tech: Amelia Loeraromina Transcribed By: [facility] 09/07/22 1020 Dictated By: John Toledo DO 09/07/22 1018 Signed By: 09/07/22 1020 Normal [facility] Urea nitrogen [Mass/volume] in Serum or PlasmaOrdered By: Mt Reyes on 09-07-2022 Urea nitrogen [Mass/Vol] 14 mg/dL 7-25 [facility] Urine bacteria detection by automated methodOrdered By: Mt Reyes on 09-07-2022 Bacteria Auto Ql (U) None seen None Seen [facility] Urine clarity by refractomet ry automatedOrdered By: Mt Reyes on 09-07-2022 Clarity Refractometry automated (U) Clear Clear [facility] Urine glucose measurement by automated test strip (mass/volume)Ordered By: Mt Reyes on 09-07-2022 Glucose Auto test strip (U) [Mass/Vol] Normal mg/dL Normal [facility] Urine hemoglobin detection b y automated test stripOrdered By: Mt Reyes on 09-07-2022 Hemoglobin Auto test strip Ql (U) 1+ Negative [facility] Urine leukocyte esterase det ection by automated test stripOrdered By: Mt Reyes on 09-07-2022 Leukocyte esterase Auto test strip Ql (U) Negative Negative [facility] Urobilinogen Auto test strip (U) [Mass/Vol]Ordered By: Mt Reyes on 09-07-2022 Urobilinogen (U) [Mass/Vol] Normal mg/dL Normal [facility] WBC Auto (Bld) [#/Vol]Ordere d By: Mt Reyes on 09-07-2022 WBC (Bld) [#/Vol] 6.7 10*3/uL 4.1-10.5 [facility] pH Auto test strip (U)Ordere d By: Mt Reyes on 09-07-2022 pH (U) 6.0 [pH] 5.0-9.0 [facility] CBC AUTO DIFFon 05-12-2022 BASO # 0.1 103/ul Normal 0.0-0.1 [facility] Comment on above: Performed By: #### C BC #### [facility] [address] [place] [address] Dr. Lindy Mcdaniel Basophils/100 WBC (Bld) 0.6 % Normal 0.2-2.0 [facility] Comment on above: Performed By: #### C BC #### [facility] [address] [place] [address] Dr. Lindy Mcdaniel EO # 0.2 103/ul Normal 0.0-0.7 [facility] Comment on above: Performed By: #### C BC #### [facility] [address] [place] [address] Dr. Lindy Mcdaniel Eosinophils/100 WBC (Bld) 1.6 % Normal 0.9-7.0 [facility] Comment on above: Performed By: #### C BC #### [facility] [address] [place] [address] Dr. Lindy Mcdaniel Erythrocyte distribution width (RBC) [Ratio] 11.9 % Normal 11.0-15.0 [facility] Comment on above: Performed By: #### C BC #### [facility] [address] [place] [address] Dr. Lindy Mcdaniel Hematocrit (Bld) [Volume fraction] 42.8 % Normal 42.0-54.0 [facility] Comment on above: Performed By: #### C BC #### [facility] [address] [place] [address] Dr. Lindy Mcdaniel Hemoglobin (Bld) [Mass/Vol] 15.0 g/dL Normal 14.0-18.0 [facility] Comment on above: Performed By: #### C BC #### [facility] [address] [place] [address] Dr. Lindy Mcdaniel IG # 0.03 10e3/ul Normal 0.00-0.03 [facility] Comment on above: Performed By: #### C BC #### [facility] [address] [place] [address] Dr. Lindy Mcdaniel IG % 0.3 % Normal 0.0-0.5 [facility] Comment on above: Performed By: #### C BC #### [facility] [address] [place] [address] Dr. Lindy Mcdaniel LYMPH # 2.8 103/ul Normal 1.2-3.8 [facility] Comment on above: Performed By: #### C BC #### [facility] [address] [place] [address] Dr. Lindy Mcdaniel Lymphocytes/100 WBC (Bld) 30.2 % Normal 20.5-60.0 [facility] Comment on above: Performed By: #### C BC #### [facility] [address] [place] [address] Dr. Lindy Mcdaniel MANUAL DIFF REQ NO Normal [facility] Comment on above: Performed By: #### C BC #### [facility] [address] [place] [address] Dr. Lindy Mcdaniel MCH (RBC) [Entitic mass] 29.4 pg Normal 25.9-34.0 [facility] Comment on above: Performed By: #### C BC #### [facility] [address] [place] [address] Dr. Lindy Mcdaniel MCHC (RBC) [Mass/Vol] 35.0 g/dL Normal 29.9-35.2 [facility] Comment on above: Performed By: #### C BC #### [facility] [address] [place] [address] Dr. Lindy Mcdaniel MCV (RBC) [Entitic vol] 83.9 fL Normal 80.0-94.0 [facility] Comment on above: Performed By: #### C BC #### [facility] [address] [place] [address] Dr. Lindy Mcdaniel MONO # 0.7 103/ul Normal 0.3-0.8 [facility] Comment on above: Performed By: #### C BC #### [facility] [address] [place] [address] Dr. Lindy Mcdaniel Monocytes/100 WBC (Bld) 7.0 % Normal 1.7-12.0 [facility] Comment on above: Performed By: #### C BC #### [facility] [address] [place] [address] Dr. Lindy Mcdaniel NEUT # 5.6 103/ul Normal 1.4-6.5 [facility] Comment on above: Performed By: #### C BC #### [facility] [address] [place] [address] Dr. Lindy Mcdaniel Neutrophils/100 WBC (Bld) 60.3 % Normal 43.0-75.0 [facility] Comment on above: Performed By: #### C BC #### [facility] [address] [place] [address] Dr. Lindy Mcdaniel Platelet mean volume (Bld) [Entitic vol] 9.2 fL Critically low 9.5-13.5 [facility] Comment on above: Performed By: #### C BC #### [facility] [address] [place] [address] Dr. Lindy Mcdaniel PLT 306 103/ul Normal 150-450 [facility] Comment on above: Performed By: #### C BC #### [facility] [address] [place] [address] Dr. Lindy Mcdaniel RBC 5.10 106/ul Normal 4.70-6.10 [facility] Comment on above: Performed By: #### C BC #### [facility] [address] [place] [address] Dr. Lindy Mcdaniel WBC 9.3 103/ul Normal 4.0-11.0 [facility] Comment on above: Performed By: #### C BC #### [facility] [address] [place] [address] Dr. Lindy Mcdaniel PROF CHEM 8 (BAS METB)on Anion gap [Moles/Vol] 10.2 mmol/L Normal Th [facility] Comment on above: Performed By: #### B MP #### [facility] [address] [place] [address] Dr. Lindy Mcdaniel Calcium [Mass/Vol] 8.8 mg/dL Normal 8.5-10.1 [facility] Comment on above: Performed By: #### B MP #### [facility] [address] [place] [address] Dr. Lindy Mcdaniel Chloride [Moles/Vol] 104 mmol/L Normal 98-107 [facility] Comment on above: Performed By: #### B MP #### [facility] [address] [place] [address] Dr. Lindy Mcdaniel CO2 [Moles/Vol] 27.3 mmol/L Normal 21.0-32.0 [facility] Comment on above: Performed By: #### B MP #### [facility] [address] [place] [address] Dr. Lindy Mcdaniel Creatinine [Mass/Vol] 0.67 mg/dL Critically low 0.70-1.30 [facility] Comment on above: Performed By: #### B MP #### [facility] [address] [address] [address] Lindy Mcdaniel EGFR-AF PRYDEINIG >60 Normal >=60 [facility] Comment on above: Performed By: #### B MP #### [facility] [address] [address] [address] Lindy Mcdaniel EGFR-NON AF PRYDEINIG >60 Normal >=60 [facility] Comment on above: Performed By: #### B MP #### [facility] [address] [address] [address] Lindy Mcdaniel Glucose [Mass/Vol] 102 mg/dL Normal 74-106 [facility] Comment on above: Performed By: #### B MP #### [facility] [address] [place] [address] Dr. Lindy Mcdaniel Potassium [Moles/Vol] 3.5 mmol/L Normal 3.5-5.1 [facility] Comment on above: Performed By: #### B MP #### [facility] [address] [address] [address] Lindy Mcdaniel Sodium [Moles/Vol] 138 mmol/L Normal 136-145 [facility] Comment on above: Performed By: #### B MP #### [facility] [address] [place] [address] Dr. Lindy Mcdaniel Urea nitrogen [Mass/Vol] 11.0 mg/dL Normal 7.0-18.0 [facility] Comment on above: Performed By: #### B MP #### [facility] [address] [address] [address] Lindy Mcdaniel Urea nitrogen/Creatinine [Mass ratio] 16.4 mg/mg Normal [facility] Comment on above: Performed By: #### B MP #### [facility] [address] [place] [address] Dr. Lindy Mcdaniel INFL[facility]ENZA [facility] Normal [facility] Comment on above: Result Comment: Nega tive for Flu B protein antigen. Infection due to Flu B cannot be ruled out. Flu B antigen in the sample may be below the detection limit of the test. Performed By: #### I NFLUAB #### [facility] [address] [place] [address] Dr. Lindy Mcdaniel INFLUENZA A AG Positive Abnormal NEGATIVE SEE COMMENT [facility] Comment on above: Performed By: #### I NFLUAB #### [facility] [address] [address] [address] Lindy Mcdaniel INFLUENZA B AG Negative Normal NEGATIVE SEE COMMENT [facility] Comment on above: Performed By: #### I NFLUAB #### [facility] [address] [address] [address] Lindy Mcdaniel COVID Quick Testingon 2021 Result Negative [facility] Other [id number] 09-29-2019 SARS-CoV-2 Not Detected Normal Not Detected [facility] Comment on above: Result Comment: (NOT E) Testing was performed using the [employer] SARS-CoV-2 assay. This test was developed and its performance characteristics determined by [facility]. This test has not been FDA cleared or approved. This test has been authorized by FDA under an Emergency Use Authorization (EUA). This test is only authorized for the duration of time the declaration that circumstances exist justifying the authorization of the emergency use of in vitro diagnostic tests for detection of SARS-CoV-2 virus and/or diagnosis of COVID-19 infection under section 564(b)(1) of the Act, 21 U.S.C. 360bbb-3(b)(1), unless the authorization is terminated or revoked sooner. When diagnostic testing is negative, the possibility of a false negative result should be considered in the context of a patient's recent exposures and the presence of clinical signs and symptoms consistent with COVID-19. An individual without symptoms of COVID-19 and who is not shedding SARS-CoV-2 virus would expect to have a negative (not detected) result in this assay. Performed At: =[facility] [place] [id number] Maryellen Jaeger MD Ph:[phone] Performed By: #### A COV #### [facility] [address] [place] [address] Family Worker: Brodie Huitron MD Vital Signs Date Time Vital Sign Value Performing Clinician Facility 03-09-2023 10:00-0500 Body height 180.97 cm Horace Scovanner Other [facility] Other 03-09-2023 10:00-0500 Body mass index (BMI) [Ratio] 32.68 kg/m2 Horace Scovanner Other [facility] Other 03-09-2023 10:00-0500 Body weight 107.05 kg Horace Scovanner Other [facility] Other 03-09-2023 10:00-0500 Diastolic blood pressure 84 mm[Hg] Horace Scovanner Other [facility] Other 03-09-2023 10:00-0500 Systolic blood pressure 141 mm[Hg] Horace Scovanner Other [facility] Other 01-24-2023 14:40-0500 Body height 180.97 cm Horace Scovanner Other [facility] Other 01-24-2023 14:40-0500 Body mass index (BMI) [Ratio] 30.47 kg/m2 Horace Scovanner Other [facility] Other 01-24-2023 14:40-0500 Body weight 99.79 kg Horace Scovanner Other [facility] Other 01-24-2023 14:40-0500 Diastolic blood pressure 76 mm[Hg] Horace Scovanner Other [facility] Other 01-24-2023 14:40-0500 Systolic blood pressure 130 mm[Hg] Horace Scovanner Other [facility] Other 10-26-2022 10:00-0400 Body height 180.97 cm Horace Scovanner Other [facility] [employer] Other 10-26-2022 10:00-0400 Body mass index (BMI) [Ratio] 31.97 kg/m2 Horace Scovanner Other [facility] Other 10-26-2022 10:00-0400 Body weight 104.74 kg Horace Scovanner Other [facility] Other 10-26-2022 10:00-0400 Diastolic blood pressure 80 mm[Hg] Horace Scovanner Other [facility] Other 10-26-2022 10:00-0400 Systolic blood pressure 124 mm[Hg] Horace Scovanner Other [facility] [address] Other 09-07-2022 08:01-0400 Diastolic blood pressure 66 mm[Hg] MD Richard Hernandez Work Phone: [facility] 09-07-2022 08:01-0400 Heart rate 79 /min MD Richard Hernandez Work Phone: [facility] 09-07-2022 08:01-0400 Respiratory rate 18 /min MD Richard Hernandez Work Phone: [facility] 09-07-2022 08:01-0400 SaO2% (BldA) [Mass fraction] 97 % MD Richard Hernandez Work Phone: [facility] 09-07-2022 08:01-0400 Systolic blood pressure 106 mm[Hg] MD Richard Hernandez Work Phone: [facility] 09-07-2022 04:02-0400 Diastolic blood pressure 66 mm[Hg] MD Richard Hernandez Work Phone: [facility] 09-07-2022 04:02-0400 Heart rate 69 /min MD Richard Hernandez Work Phone: [facility] 09-07-2022 04:02-0400 Respiratory rate 16 /min MD Richard Hernandez Work Phone: [facility] 09-07-2022 04:02-0400 SaO2% (BldA) [Mass fraction] 99 % MD Richard Hernandez Work Phone: [facility] 09-07-2022 04:02-0400 Systolic blood pressure 132 mm[Hg] MD Richard Hernandez Work Phone: [facility] 09-06-2022 20:10-0400 Body height 182.88 cm MD Richard Hernandez Work Phone: [facility] 09-06-2022 20:10-0400 Body temperature 99.2 [degF] MD Richard Hernandez Work Phone: [facility] 09-06-2022 20:10-0400 Body weight 99.15 kg MD Richard Hernandez Work Phone: [facility] 03-13-2021 15:00-0500 Body height 180.97 cm Reena Galloway Other [facility] Other 03-13-2021 15:00-0500 Body mass index (BMI) [Ratio] 27.7 kg/m2 Reena Ginty Other [facility] Other 03-13-2021 15:00-0500 Body temperature 98.4 [degF] Reena Ginty Other [facility] Other 03-13-2021 15:00-0500 Body weight 90.72 kg Reena Ginty Other [facility] Other 03-13-2021 15:00-0500 Respiratory rate 20 /min Reena Ginty Other [facility] Other 03-13-2021 15:00-0500 SaO2% (BldA) [Mass fraction] 98 % Reena Ginty Other [facility] Other Encounters Encounter Date Encounter Type Care Provider Facility Start: 05-21-2023 End: 05-21-2023 ambulatory RICHARD HERNANDEZ Not Available Start: 04-11-2023 Chart abstracting Richard braswell MD Work Phone: [facility] Start: 03-09-2023 End: 03-09-2023 ambulatory Horace Lam Other [facility] Other Start: 03-09-2023 Office outpatient visit 15 minutes Horace Lam [facility] Start: 01-24-2023 End: 01-24-2023 ambulatory Horace Lam Other [facility] Other Start: 01-24-2023 Office outpatient visit 15 minutes Horace Lam [facility] Start: 01-09-2023 End: 01-09-2023 ambulatory Horace Lam Other [facility] Other Start: 01-09-2023 Telephone encounter [facility] Start: 01-08-2023 End: 01-08-2023 ambulatory Glenn Islas Facility:[facility] Start: 12-07-2022 End: 12-07-2022 ambulatory Horace Lam Other [facility] Other Start: 12-07-2022 Telephone encounter [facility]ace [facility] Start: 10-26-2022 End: 10-26-2022 ambulatory Horace Lam Other [facility] Other Start: 10-26-2022 Office outpatient ne w 30 minutes Horace Lam [facility] Start: 10-03-2022 End: 10-04-2022 ambulatory Rodger LOUIS Facility:[facility] Start: 10-03-2022 End: 10-03-2022 Patient encounter procedure Rodger Madiha LOUIS [facility] Start: 09-06-2022 End: 09-07-2022 Emergency department patient visit Richard Hernandez Facility:[facility] Start: 09-06-2022 End: 09-07-2022 Emergency department patient visit MD Richard Hernandez Work Phone: [facility] Work Phone: Start: 05-12-2022 End: 05-13-[address] LOBO FLORES . Facility: Start: 03-01-2022 End: 03-01-[address] LOBO FLORES . Facility: Start: 03-13-2021 End: 03-13-2021 ambulatory Reena Galloway Other [facility] Other Start: 03-13-2021 Office outpatient visit 15 minutes Reena Galloway [facility] Start: 09-26-2019 End: 09-27-2019 Patient encounter procedure RICHARD HERNANDEZ [facility] Start: 09-26-2019 End: 09-26-2019 [facility] Cov[facility] Screening Comment on above: Arrived Procedures Date Procedure Procedure Detail Performing Clinician Start: 09-26-2019 COVID-19 AMBULATORY EDW GEO HERNANDEZ Plan of Treatment Date Care Activity Detail Author Start: 2023 End: 2023 Patient encounter procedure 2023 8:00 AM EST Office Visit [facility] [address] [place] [address] Richard Hernandez MD [address] [place] [address] (Fax) [facility] Start: 11-03-2022 Influenza vaccination Influenza Vacc ine (#1) [facility] Start: 09-07-2022 US Scrotum and testicle [facility] Start: 09-07-2022 US, scrotum US scrotum [facility] Start: 09-07-2022 CT Abdomen and Pelvi s WO contrast [facility] Start: 09-07-2022 CT of abdomen and pelvis without contrast CT abdomen pelvis wo con [facility] Start: 11-04-2019 Influenza vaccination Flu vaccine (# 1) [place], [place] Start: 2007 DTaP/Tdap/Td vaccine (1 - Tdap) DTaP/Tdap/Td vaccine (1 - Tdap) [place] Start: 2003 HIV screening HIV screen [place], [place] Start: 1989 Varicella vaccine (1 of 2 - 2-dose childhood series) Varicella vaccine (1 of 2 - 2-dose childhood series) [place] End: 09-26-2019 Covid-19 Ambulatory Covid-19 Ambulatory Lab Routine Once for 1 Occurrences starting 09/26/2019 until 09/26/2019 [place] Comment on above: Once for 1 Occurrenc es starting 09/26/2019 until 09/26/2019 Covid-19 Ambulatory Covid-19 Amb ulatory Lab Routine 09/26/2019 9:29 AM EDT [place] Patient Education Urinary Retention [facility] Work Phone: Patient referral [facility] Work Phone: Payers Date Payer Category Payer Private Health Insurance [employer] [id number] 2022-Present [address] [address] [place] [address] [id number] 2022 Unknown [id number] 2019 Unknown [id number] 2019 Unknown BCBS [place] P PO [id number] 2019-Present [address] [place] [address] [id number] 1988 Unknown [id number] 1988 Unknown [id number] 1988 Unknown [id number] 1988 Unknown [id number] 1959 Private Health Insurance [id number] 1959 Self-pay Private Health Insurance [id number] Unknown Catia BC/BS [id number] Unknown [id number] Unknown [id number] Social History Date Type Detail Facility [facility] [place] Start: 1990 Sex Assigned At Not on file [place] Start: 10-26-2022 Sex Assigned At F [facility] Start: 09-07-2022 [facility] Never [facility] tobacco (finding) [facility] Start: 1990 Sex Assigned At Male F [facility] Tobacco smoking status No Smokin g Status Entered [facility] Start: 10-12-2022 Tobacco [facility] End: 03-05-2015 History of tobacco use Current smoker [facility] End: 03-05-2015 History of tobacco use Cigarette Smoker [facility] Start: 10-12-2022 Tobacco use and exposure Former smokeless tobacco user [facility] Start: 04-11-2023 Alcohol intake Ex-drinker (finding) [facility] Start: 10-26-2022 History of Social function [facility] Clinical Notes 03-13-2021 to 03-09-2023 Note Date & Type Note Facility 03-09-2023 Evaluation note Encounter Date Diagnosis Assessment Notes Mar, Irritable bowel syndrome with constipation (ICD-10 - K58.1) Continue miralax twice a day, may increase if needed Rto 6 months [facility] Other 11-22-2023 Evaluation note* Encounter Date Diagnosis Assessment Notes Treatment Notes Treatment Clinical Notes Jan, Irritable bowel syndrome with constipation (ICD-10 - K58.1) Patient advised to start a probiotic and metamucil gummies (3 a day) Samples of Trulance given to patient. Rto 1 month [facility] Other 08-24-2023 Evaluation note* Encounter Date Diagnosis Assessment Notes Treatment Notes Treatment Clinical Notes Oct, Constipation (ICD-10 - K59.00) Pt states he has had chronic constipation for about 3 years now. Pt states he usually has a bowel movement every 2-3 days. Pt states he does take miralax BID which does not seem to be helping. Pt states he has not had a colonoscopy. No blood with bowel movements. Pt states that he does get abdominal pain. Pt does occasionally take senna. Pt advised to proceed with colonoscopy. Pt advised to add a probiotic to diet, one a day. Pt advised to take a metamucil gummy or a powder. Pt advised to drink more water. Oct, Change in bowel habits (ICD-10 - R19.4) [facility] Other 01-09-2022 Evaluation note* Encounter Date Diagnosis Assessment Notes Treatment Notes Treatment Clinical Notes Mar, Contact with and (suspected) exposure to other viral communicable diseases (ICD-10 - Z20.828) Advised patient that rapid COVID antigen test in office was negative. Due to close contact with COVID+ person, I am highly suspicious and offered PCR test. After discussion with patient PCR order placed and patient was provided with copy of order and instructions on how to schedule. Advised that I will call them with results within 2-5 days. Discussed supportive care of viral infections, including, OTC cold medications as directed, Tylenol/Motrin as directed on packaging for fever/aches, increase fluids and rest, cool mist humidification, throat lozenges. Patient to follow-up with UC or PCP for persistent or worsening sx despite tx. Immediate eval by ER for warning s/sx as discussed, including but not limited to, SOB, difficulty breathing, chest pain, palpitations, fever >103 or fevers that are not reduced with antipyretic, significant dehydration (unable to keep fluids or food down, persistent vomiting/diarrhea), abdominal pain, lethargy, severe headache. Patient was provided with education hand sheet. Patient verbalizes understanding and is agreeable to treatment plan Mar, Acute bacterial conjunctivitis of right eye (ICD-10 - H10.31) Discussed diagnosis with patient. Advised patient that this can occur seconday to COVID. Will send in to cover for bacterial conjunctivitis in case. Advised to use eye drops as prescribed, discussed proper administration. Contagious until after 24 hours on antibiotic eye drops. Advised good hand hygiene and infection control, wash linens and bedding, do not touch eye directly with eye drop bottle, wipe off bottle after every use, do not share eye drop bottles. Apply cool compress to eye several times a day, clean eye with warm, most cloth from inner to outer canthus. Eye symptoms should improve in 2-3 days with treatment, if no improvement follow up with PCP or UC. Immediate eval if symptoms worsen, eye pain, vision changes, redness and swelling occur around the eye, headache, fever, N/V or any other concerning symptoms. Patient verbalizes understanding and is agreeable to treatment plan Mar, Other Additional time spent conducting pre-visit phone call, screening for symptoms, instructions on social distancing, application and removal of PPE, and cleaning of examination room, equipment and supplies was preformed. Patient education given for testing methodology and results. Patient care instructions given in writting by [facility] Care At Home document [facility] [address] Other Evaluation + Plan note No data available for this section [facility] Evaluation noteNo assessment information available [facility] Work Phone: Evaluation [facility]No [facility] [address] Other Hishzam general Narrative - Reported* Type Description Date Surgical History No Surgical history information Hospitalization History No Hospitalization histo ry information [facility] [address] Other Hisnxpj general Narrative - Reported* Type Description Date Surgical History No Surgical history information Hospitalization History urine retention [facility] [address] Other Hisat[place] general Narrative - Reported* Type Description Date Surgical History No know Surgical history Hospitalization History urine retention [facility] [address] Other Hospital Discharge instructions No data available for this section [facility] Progress note No data available for this section [facility] Summary Purpose Family History No Family History Records FoundNo Family History Records FoundNo Family History Records FoundNo Family History Records FoundNo Family History Records Found Advance Directives No Advanced Directives Records FoundDocuments on File Type Date 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 Advance Directives and Living Will Power of Blow Mold Technician Advance Directive Response Recorded Date/ Time Advance Directives No September 07 3 12:14am Chief Complaint and Reason for Visit Chief Complaint STOMACH PAIN (NO URI NE) Additional Source Comments (unrecognized sect ion and content) No Status Records FoundNo Status Records FoundNo Status Records FoundNo Status Records FoundNo Status Records Found INFORMATION SOURCE (unrecogn ized section and content) DATE CREATED AUTHOR 09/30/2019 Lauryn marroquin DATE CREATED AUTHOR AUTHOR'S LORENA ATHONEY 05/16/2022 [facility] DATE CREATED AUTHOR AUTHOR'S ORGANIZ ATION 10/04/2022 Rajendra Rodriguez [facility] DATE CREATED AUTHOR AUTHOR'S ORGANIZ ATION 01/17/2023 [facility] DATE CREATED AUTHOR AUTHOR'S ORGANIZ ATION 05/22/2023 [facility] d[facility] Specialists EPIC REASON FOR VISIT (unrecogniz ed section and content) #20 SILVER FUSION, CONGESTIO N, H/A, COUGH, EXPOSUREPatient is here for constipation at the request of Dr. HernandezRESCHEDULED COLONOSCOPYORDERS PER DR ArnoldinicalPatient is here for a follow up after a colonoscopyPatient is here for a 1 month follow up. Patient is no longer taking the Trulance. He states that it was causing abdominal pain and diarrhea Care Teams (unrecognized sec tion and content) Team Status: Active Member Role Status Dates Richard Hernandez MD Primary Care Provider Active Team Status: Inactive Member Role Status Dates Richard Hernandez MD Primary Care Provider Active [place] DO Emergency Provider Active Flatbed Owner Operator Relationship Specialty Start Date End Date Richard Hernandez MD [address] [place] [address] PCP - General Family Medicine 08/29/22 Goals (unrecognized section and content) Goals may be documented in a n alternate section FOR RECORDS PERTAINING TO PATIENTS WHO ARE OR HAVE BEEN ENROLLED IN A CHEMICAL DEPENDENCY/SUBSTANCEABUSE PROGRAM, SOME INFORMATION MAY BE OMITTED. This clinical summary was aggregated from multiple sources. Caution should be exercised in using it in the provision of clinical care. This summary normalizes information from multiple sources, and as a consequence, information in this document may materially change the coding, format and clinical context of patient data. In addition, data may be omitted in some cases. CLINICAL DECISIONS SHOULD BE BASED ON THE PRIMARY CLINICAL RECORDS. [facility]. provides no warranty or guarantee of the accuracy or completeness of information in this document.
[2024-07-11 19:56] VITALS: BP 133/78; PULSE 87; TEMP 37.3; O2SAT 98; BMI 32.5
--- NOTE | 2024-07-11 20:08 | ED.MALEGU1 ---
HPI - Male Genitourinary General Chief complaint: Urogenital-Male Stated complaint: URINARY RETENTION Time Seen by Provider: 07/11/24 19:57 Source: patient Mode of arrival: walk-in Limitations: no limitations History of Present Illness HPI Narrative: required urinary catheter one year ago. workup unremarkable and Urology felt it was related to his constipation. His of constipation. States he is constipated now and has tried miralax and suppository . Decreased urine output and now presents to be seen. Mild nausea early. low grade fever. No flank pain Related Data Home Medications ?Medication ?Instructions ?Recorded ?Confirmed No Known Home Medications 07/11/24 07/11/24 Allergies Allergy/AdvReac Type Severity Reaction Status Date / Time No Known Drug Allergies Allergy Verified 07/11/24 20:05 Review of Systems ROS Status of ROS 10 or more systems reviewed and unremarkable except as noted in history and below PFSH PFSH Social History Little interest or pleasure in doing things: not at all Feeling down, depressed, or hopeless: not at all Exam Constitutional Vital Signs, click to edit/add: Last Vital Signs Temp 99.2 F 07/11/24 19:56 Pulse 87 07/11/24 19:56 Resp 18 07/11/24 19:56 BP 133/78 07/11/24 19:56 Pulse Ox 98 07/11/24 19:56 O2 Del Method Room Air 07/11/24 19:56 Common normals: no apparent distress, average body habitus, oriented x3, no limitations, healthy appearing, alert and well nourished [facility] Common normals: normocephalic and head/scalp atraumatic Eye Common normals: PERRL and EOMs intact bilaterally Respiratory Common normals: normal respiratory effort, no retractions, no use of accessory muscles and clear to auscultation bilaterally Cardio Common normals: regular rate, regular rhythm, S1 normal heart sound and S2 normal heart sound GI Other: suprapubic tenderness.not firm Extremity Common normals: normal to inspection and full ROM Neuro Common normals: oriented x3, CN's II-XII intact bilaterally, moves all extremities and no focal motor deficits Psych Appearance: grossly normal Course Vital Signs Vital signs: Vital Signs Temperature 99.2 F 07/11/24 19:56 Pulse Rate 87 07/11/24 19:56 Respiratory Rate 18 07/11/24 19:56 Blood Pressure 133/78 07/11/24 19:56 Pulse Oximetry 98 07/11/24 19:56 Oxygen Delivery Method Room Air 07/11/24 19:56 Temperature 99.2 F 07/11/24 19:56 Pulse Rate 87 07/11/24 19:56 Respiratory Rate 18 07/11/24 19:56 Blood Pressure 133/78 07/11/24 19:56 Pulse Oximetry 98 07/11/24 19:56 Oxygen Delivery Method Room Air 07/11/24 19:56 MDM - Male Genitourinary MDM Narrative Medical decision making narrative: patient presents complaining of constipation and urinary retention. found to have 200cc on bladder scan. Xray with increased stool content but no obstruction. Abdomen soft with mild suprapubic tenderness. No guarding. CBC,BMP WNL. Patient in the past had urinary retention due to significant constipation. Does not have that this visit. We discussed option of CT to further evaluate why he has pain but he has decided against it at this time. will return if any worsening Lab Data Labs: Lab Results 07/11/24 Range/Units 20:13 WBC 8.0 (4.0-11.0) 10^3/uL RBC 5.19 (4.70-6.10) 10^6/uL Hgb 15.1 (14.0-18.0) g/dL Hct 43.9 (42.0-54.0) % MCV 84.6 (80.0-94.0) fL MCH 29.1 (25.9-34.0) pg MCHC 34.4 (29.9-35.2) g/dL RDW 11.9 (11.0-15.0) % Plt Count 340 (150-450) 10^3/uL MPV 9.2 L (9.5-13.5) fL Neut % (Auto) 62.0 (43.0-75.0) % Lymph % (Auto) 25.5 (20.5-60.0) % [place] % (Auto) 9.6 (1.7-12.0) % Eos % (Auto) 1.6 (0.9-7.0) % Baso % (Auto) 1.0 (0.2-2.0) % Neut # (Auto) 5.0 (1.4-6.5) 10^3/uL Lymph # (Auto) 2.0 (1.2-3.8) 10^3/uL [place] # (Auto) 0.8 (0.3-0.8) 10^3/uL Eos # (Auto) 0.1 (0.0-0.7) 10^3/uL Baso # (Auto) 0.1 (0.0-0.1) 10^3/uL Abs Immat Gran (auto) 0.02 (0.00-0.03) 10^3/uL Imm/Tot Granulo (auto) 0.3 (0.0-0.5) % Sodium 136 (136-145) mmol/L Potassium 3.9 (3.5-5.1) mmol/L Chloride 101 (98-107) mmol/L Carbon Dioxide 26.6 (21.0-32.0) mmol/L Anion Gap 12.3 BUN 14.0 (7.0-18.0) mg/dL Creatinine 1.21 (0.70-1.30) mg/dL Est GFR ( Amer) >60 (>=60 mL/min/1.73m^2) Est GFR (Non-Af Amer) >60 (>=60 mL/min/1.73m^2) BUN/Creatinine Ratio 11.6 Glucose 98 (74-106) mg/dL Calcium 8.8 (8.5-10.1) mg/dL Discharge Plan Discharge Chief Complaint: Urogenital-Male Clinical Impression: Abdominal pain Patient Disposition: Home, Self-Care Prescriptions / Home Meds: No Action No Known Home Medications Print Language: Pashto Instructions: Abdominal Pain (ED) Referrals: SILVIA HERNANDEZ [Primary Care Provider, Family Practice] - 1 week
--- NOTE | 2024-07-11 20:15 | PC.NURSE ---
Pt presents to ER for urinary retention and constipation pt states he often struggles with constipation and has seen GI and had a colonoscopy for this Pt uses fiber supplements and has been using miralax for approximately 2 weeks with no real success of complete bowel movements Pt began experiencing urinary retention this morning, he went 12 hours, was able to urinate and now has been 7 hours without urinating at this time Pt states this happened to him once before, he had a CT done at [facility] and had a ortiz cath placed and then was evaluated by urology pt states all of his testing at this time showed no urinary abnormalities and the urologist told him it was most likely due to the constipation he was experiencing at that time On arrival this nurse bladder scanned the patient which showed 242mls xray order placed and pt asked if we can wait to cath him until after the xray - plan - if it shows severe constipation we will try to solve the constipation to see if he is able to release his bladder on his own before resorting to cath Dr. nunez in agreeance with this plan Labwork obtained due to low grade fever Pt down to xray at this time
[2024-07-11 20:22] LABS: Basophils Absolute Auto 0.1 10^3/uL (0.0-0.1); Eosinophils Absolute Auto 0.1 10^3/uL (0.0-0.7); Eosinophils Percent Auto 1.6 % (0.9-7.0); Hematocrit 43.9 % (42.0-54.0); Hemoglobin 15.1 g/dL (14.0-18.0); Immature Granulocytes Abs Auto 0.02 10^3/uL (0.00-0.03); Immature Granulocytes Pct Auto 0.3 % (0.0-0.5); Lymphocytes Percent Auto 25.5 % (20.5-60.0); Mean Corpuscular HGB Conc 34.4 g/dL (29.9-35.2); Mean Corpuscular Hemoglobin 29.1 pg (25.9-34.0); Mean Corpuscular Volume 84.6 fL (80.0-94.0); Mean Platelet Volume 9.2 fL (9.5-13.5); Monocytes Absolute Auto 0.8 10^3/uL (0.3-0.8); Monocytes Percent Auto 9.6 % (1.7-12.0); Platelet Count 340 10^3/uL (150-450); Red Blood Count 5.19 10^6/uL (4.70-6.10); Red Cell Distribution Width 11.9 % (11.0-15.0)
[2024-07-11 20:27] LABS: Anion Gap 12.3; BUN Creatinine Ratio 11.6; Calcium 8.8 mg/dL (8.5-10.1); Carbon Dioxide 26.6 mmol/L (21.0-32.0); Chloride 101 mmol/L (98-107); Estimated GFR (African America >60 (>=60 mL/min/1.73m^2); Estimated GFR (Non-African Ame >60 (>=60 mL/min/1.73m^2); Glucose 98 mg/dL (74-106); Potassium 3.9 mmol/L (3.5-5.1); Sodium 136 mmol/L (136-145)
--- NOTE | 2024-07-11 21:37 | PC.NURSE ---
Pt called this nurse into room and explained he does not want a cat scan as he does not feel this is the problem pt and his spouse explain that this may be anxiety related for him Pt encouraged to take his time in the bathroom and take deep breaths, try applying presure to bladder when pushing for urine pt is sensitive to palpation on bladder area
== END 2024-07-11 22:31 | disposition home or self-care (01) ==
PROVIDERS: Emergency Provider Internal Medicine; PCP Family Medicine
DX: R10.9 Unspecified abdominal pain (principal); R33.9 Retention of urine, unspecified; K59.00 Constipation, unspecified
CPT/HCPCS: 36415; 74018; 80048; 81001; 85025; 99284